=== PATIENT | female | born 1965 | race Hispanic/Latino ===

== ENCOUNTER 2016-07-28 18:12 | Inpatient (IN) | payer OTHER ==
[2016-07-28 18:59] LABS: Basophils % (Auto) 0.7 % (0.0-1.8); Eosinophils % (Auto) 3.7 % (0.0-4.3); Hematocrit 42.9 % (30.3-42.9); Hemoglobin 14.4 gm/dl (10.1-14.3); Mean Corpuscular HGB Conc 34 % (30-34); Mean Corpuscular Hemoglobin 29 pg (28-32); Mean Corpuscular Volume 87 fl (79-97); Platelet Count 191 K/mm3 (140-440); Red Blood Count 4.96 M/mm3 (3.65-5.03); Red Cell Distribution Width 13.5 % (13.2-15.2); White Blood Count 7.4 K/mm3 (4.5-11.0)
[2016-07-28 19:13] LABS: Anion Gap 17 mmol/L; Blood Urea Nitrogen 9 mg/dL (7-17); Calcium 9.4 mg/dL (8.4-10.2); Carbon Dioxide 27 mmol/L (22-30); Chloride 99.9 mmol/L (98-107); Glucose 78 mg/dL (65-100); Potassium 4.1 mmol/L (3.6-5.0); Sodium 140 mmol/L (137-145)
--- NOTE | 2016-07-28 22:18 | Emergency Department Report ---
ED General Adult HPI - General Chief complaint: Chest Pain Stated complaint: CHEST PAIN Time Seen by Provider: 07/28/16 22:16 Source: patient, RN notes reviewed Mode of arrival: Ambulatory Limitations: No Limitations - History of Present Illness Initial comments: This is a 51-year-old female. She is previously unknown to me. Her primary care doctor is Dr. Kumari. She denies a past medical history. She presents to the ER with chest pain. The chest pain is central. It is described as tight in nature. She indicates it radiates to the back. There is positive nausea and shortness of breath. There is no vomiting. There is no diaphoresis. No posterior leg pain. No posterior leg swelling. No recent trips greater than 4 hours. No recent hospital admissions. The patient also endorses intermittent diaphoresis. She has taken aspirin in the past few days. No recent cardiac risk stratification. -: Gradual Location: chest Radiation: back Quality: aching Consistency: intermittent Improves with: rest Worsens with: eating Associated Symptoms: chest pain, nausea/vomiting, shortness of breath - Related Data Allergies Allergy/AdvReac Type Severity Reaction Status Date / Time ANTIBOTIC Allergy Unknown Uncoded 07/28/16 18:39 ED Review of Systems ROS: Stated complaint: CHEST PAIN Other details as noted in HPI Constitutional: diaphoresis. denies: malaise Eyes: denies: vision change Respiratory: shortness of breath Cardiovascular: chest pain Gastrointestinal: nausea Genitourinary: denies: dysuria Musculoskeletal: back pain Skin: denies: lesions Neurological: denies: weakness Psychiatric: denies: anxiety ED Past Medical Hx - Past Medical History Previous Medical History?: No Additional medical history: ANEMIA - Surgical History Additional Surgical History: WRIST SURGERY - Social History Smoking Status: Current Every Day Smoker Substance Use Type: Alcohol ED Physical Exam - General Limitations: No Limitations General appearance: alert, in no apparent distress - Head Head exam: Present: atraumatic, normocephalic - Eye Eye exam: Present: normal appearance, EOMI. Absent: nystagmus - ENT ENT exam: Present: normal exam, normal orophraynx, mucous membranes moist, normal external ear exam - Neck Neck exam: Present: normal inspection, full ROM. Absent: tenderness, meningismus - Respiratory Respiratory exam: Present: normal lung sounds bilaterally. Absent: respiratory distress, wheezes, rales, rhonchi, stridor, chest wall tenderness, accessory muscle use, decreased breath sounds, prolonged expiratory - Cardiovascular Cardiovascular Exam: Present: regular rate, normal rhythm, normal heart sounds. Absent: bradycardia, tachycardia, irregular rhythm, systolic murmur, diastolic murmur, rubs, gallop - GI/Abdominal GI/Abdominal exam: Present: soft, normal bowel sounds. Absent: distended, tenderness, guarding, rebound, rigid, pulsatile mass - Extremities Exam Extremities exam: Present: normal inspection, full ROM, normal capillary refill. Absent: tenderness, pedal edema, joint swelling, calf tenderness - Back Exam Back exam: Present: normal inspection, full ROM. Absent: tenderness, CVA tenderness (R), CVA tenderness (L), muscle spasm, paraspinal tenderness, vertebral tenderness - Neurological Exam Neurological exam: Present: alert, oriented X3, normal gait, other (Extraocular movements intact. Tongue midline. No facial droop. Facial sensation intact to light touch in the V1, V2, V3 distribution bilaterally. 5 and 5 strength in 4 extremities.. Sensation is intact to light touch in 4 extremities.). Absent : motor sensory deficit - Psychiatric Psychiatric exam: Present: normal affect, normal mood - Skin Skin exam: Present: warm, dry, intact, normal color. Absent: rash ED Course Vital Signs 07/28/16 07/28/16 07/28/16 18:27 22:18 22:35 Temperature 98.4 F 98.2 F Pulse Rate 84 64 72 Respiratory 18 11 L 13 Rate Blood Pressure 201/113 Blood Pressure 219/98 205/97 [Left] O2 Sat by Pulse 100 100 97 Oximetry 07/28/16 07/29/16 07/29/16 23:59 00:00 00:16 Temperature 97.9 F Pulse Rate 77 76 Respiratory 18 20 Rate Blood Pressure 205/97 Blood Pressure 205/97 196/95 [Left] O2 Sat by Pulse 97 100 Oximetry - Reevaluation(s) Reevaluation #1: 07/29/16 00:33 Differential diagnosis: GERD, gastritis, acute coronary syndrome, pneumonia, cardiomyopathy, hypertensive urgency Assessment and plan: 51-year-old female with chest pain, elevated blood pressure , abnormal EKG, no pulmonary embolus or DVT risk factors, low risk by well's criteria. X-ray the chest is unremarkable, the patient has normal pulses in 4 extremities , therefore I think aortic disease is very unlikely. I appreciated that the patient's troponins are negative multiple times, and that her pain has been present for a few weeks, however given her age, elevated blood pressure, and clinical history, I think it prudent to bring the patient into the hospital for blood pressure control, observation, and acute coronary syndrome risk stratification. The patient's case has been discussed with the hospital physician, Dr. Le, who accepts the patient to her service. 07/29/16 00:37 ED Medical Decision Making - Lab Data Result diagrams: 07/28/16 18:36 07/28/16 18:36 Vital Signs 07/28/16 07/28/16 07/28/16 18:27 22:18 22:35 Temperature 98.4 F 98.2 F Pulse Rate 84 64 72 Respiratory 18 11 L 13 Rate Blood Pressure 201/113 Blood Pressure 219/98 205/97 [Left] O2 Sat by Pulse 100 100 97 Oximetry 07/28/16 07/29/16 07/29/16 23:59 00:00 00:16 Temperature 97.9 F Pulse Rate 77 76 Respiratory 18 20 Rate Blood Pressure 205/97 Blood Pressure 205/97 196/95 [Left] O2 Sat by Pulse 97 100 Oximetry Labs 07/28/16 07/28/16 07/28/16 18:36 18:36 20:45 WBC 7.4 RBC 4.96 Hgb 14.4 H Hct 42.9 MCV 87 MCH 29 MCHC 34 RDW 13.5 Plt Count 191 Lymph % (Auto) 30.2 [place] % (Auto) 9.5 H Eos % (Auto) 3.7 Baso % (Auto) 0.7 Lymph # 2.2 Fisher # 0.7 Eos # 0.3 Baso # 0.1 Seg Neutrophils % 55.9 Seg Neutrophils # 4.1 PT INR Sodium 140 Potassium 4.1 Chloride 99.9 Carbon Dioxide 27 Anion Gap 17 BUN 9 Creatinine 0.5 L Estimated GFR > 60 BUN/Creatinine Ratio 18.00 Glucose 78 Calcium 9.4 Troponin T < 0.010 < 0.010 07/28/16 22:40 WBC RBC Hgb Hct MCV MCH MCHC RDW Plt Count Lymph % (Auto) [place] % (Auto) Eos % (Auto) Baso % (Auto) Lymph # Fisher # Eos # Baso # Seg Neutrophils % Seg Neutrophils # PT 13.0 INR 0.99 Sodium Potassium Chloride Carbon Dioxide Anion Gap BUN Creatinine Estimated GFR BUN/Creatinine Ratio Glucose Calcium Troponin T - EKG Data When compared to previous EKG there are: previous EKG unavailable 07/29/16 00:38 EKG #1 demonstrates normal sinus, 65 bpm, normal axis, normal intervals, poor R-wave progression, nonspecific T-wave abnormality, not morphologically consistent with STEMI. EKG #2 demonstrates normal sinus, 64 bpm, normal axis, normal intervals, poor R- wave progression, nonspecific T-wave abnormality, not morphologically consistent with stemi - Radiology Data Radiology results: report reviewed, image reviewed interpreted by me: X-ray of the chest is negative for acute disease Critical care attestation.: If time is entered above; I have spent that time in minutes in the direct care of this critically ill patient, excluding procedure time. ED Disposition Clinical Impression: Chest pain, Hypertensive urgency, Abnormal EKG Disposition: OP ADMITTED IP TO THIS HOSP Is pt being admited?: Yes Does the pt Need Aspirin: Yes Condition: Stable
[2016-07-28] MEDS ORDERED: ALUM-MAG HYDROX-SIMETH 200-200-20MG/5ML PO ONE (23:06)
[2016-07-28] MEDS ORDERED: NITROSTAT SL PRN (23:06)
[2016-07-28] MEDS ORDERED: APRESOLINE IV ONE (23:06)
[2016-07-28] MEDS ORDERED: PEPCID IV ONE (23:06)
[2016-07-28 23:28] LABS: INR 0.99 (0.87-1.13)
--- NOTE | 2016-07-28 23:57 | History and Physical Report ---
History of Present Illness Date of examination: 07/28/16 History of present illness: 51-year-old man with no medical problems comes emergency room with complaints of chest pain. Pain is in the epigastric area which she's had over the last 3 weeks, described as tightness, intermittent in nature lasting for less than 1 minute, intensity 4/10, radiating to the right upper back, she cannot identify exacerbating or relieving factors. She admits to nausea, no vomiting, shortness breath, diaphoresis or palpitation. Also complaining of headache. Blood pressure in the emergency room was greater than 200 systolic Patient denies cough, abdominal pain, hematochezia, dysuria, frequency, focal weakness, dysarthria, fever chills, polydipsia polyuria, hot or cold intolerance , easy bruisability, or rash or bleeding from mucosal membrane, rhinorrhea, epistaxis, earache, tinnitus, blurry vision, eye discharge, anxiety, depression. Other review of systems negative PAST SURGICAL HISTORY: None SOCIAL HISTORY: Smoke 4 cigarettes a day, social alcohol use, no drugs FAMILY HISTORY: Hypertension Medications and Allergies Allergies Allergy/AdvReac Type Severity Reaction Status Date / Time ANTIBOTIC Allergy Unknown Uncoded 07/28/16 18:39 Active Meds: Active Medications Nitroglycerin (Nitrostat) 0.4 mg SL .Q5MIN PRN PRN Reason: Chest Pain Exam - Physical Exam Narrative exam: Gen. appearance: Patient lying in bed, no apparent distress HEENT: Normocephalic, atraumatic, pupils equally round and reactive to light, extraocular movement intact, and no sclericterus,. No JVD or thyromegaly or nodule,neck supple, no carotid bruit ,mucous membranes moist, no exudate or erythema Heart: S1, S2, regular rate and rhythm Lungs: Clear to auscultation bilaterally, breathing comfortable Abdomen: Positive bowel sounds, nontender, nondistended, no organomegaly Extremity: No edema, cyanosis, clubbing Skin: No rash, nodules, warm, dry Neuro: Oriented 3, cranial nerves II-12 intact, speech is fluent, motor and sensory intact - Constitutional Vitals: Temp Pulse Resp BP Pulse Ox 98.2 F 72 13 205/97 97 07/28/16 22:35 07/28/16 22:35 07/28/16 22:35 07/28/16 22:35 07/28/16 22:35 Results - Labs CBC & Chem 7: 07/28/16 18:36 07/28/16 18:36 Labs: Abnormal lab results 07/28/16 07/28/16 Range/Units 18:36 18:36 Hgb 14.4 H (10.1-14.3) gm/dl [place] % (Auto) 9.5 H (0.0-7.3) % Creatinine 0.5 L (0.7-1.2) mg/dL - Imaging and Cardiology EKG: image reviewed Chest x-ray: image reviewed Assessment and Plan Hypertensive urgency, malignant Chest pain most likely secondary to #1 Headache was at the secondary to #1 Admit to medicine Obtain CAT scan of the head, start IV hydralazine, Norvasc Check cardiac enzymes, lipid profile and obtain a stress test Start DVT prophylaxis, IV morphine for pain
[2016-07-29] MEDS ORDERED: APRESOLINE IV PRN (00:27)
[2016-07-29] MEDS ORDERED: TYLENOL PO PRN (00:28)
[2016-07-29] MEDS ORDERED: DULCOLAX PR PRN (00:28)
[2016-07-29] MEDS ORDERED: SODIUM CHLORIDE FLUSH SYRINGE 10 ML IV PRN (00:28)
[2016-07-29] MEDS ORDERED: MILK OF MAGNESIA PO PRN (00:28)
[2016-07-29] MEDS ORDERED: ZOFRAN IV PRN (00:28)
[2016-07-29] MEDS ORDERED: NORVASC PO ONE (00:31)
[2016-07-29] MEDS ORDERED: ASPIRIN PO ONE (00:39)
[2016-07-29] MEDS ORDERED: BABY ASPIRIN ONE (00:41)
[2016-07-29] MEDS ORDERED: NORVASC ONE (00:42)
--- NOTE | 2016-07-29 01:17 | Cat Scan Report ---
FINAL REPORT PROCEDURE: CT HEAD/BRAIN WO CON TECHNIQUE: Computerized tomography of the head was performed without contrast material. HISTORY: headache COMPARISON: No prior studies are available for comparison. FINDINGS: Skull and scalp: Normal. Paranasal sinuses: Moderate opacification of the ethmoid, frontal and sphenoid sinuses.. Ventricles and subarachnoid spaces: Normal. Cerebrum: No evidence of an acute hemorrhage or hematoma. No infarction. No midline displacement. No mass effect. There is an area of hypoattenuation in the region of the sella turcica, this may indicate empty sella syndrome. Further evaluation with MRI may be appropriate.. Cerebellum and brainstem: No evidence of hemorrhage, acute infarction or mass. Vasculature: Normal. Comments: None. IMPRESSION: There is no evidence of acute intracranial hemorrhage, hematoma or infarction. Area of hypoattenuation in the region of the sella turcica may represent empty sella syndrome. Further evaluation with MRI may be appropriate. Moderate sinusitis as discussed.
[2016-07-29 02:48] LABS: Cholesterol 168 mg/dL (50-199); HDL Cholesterol 50 mg/dL (40-59); LDL Cholesterol,Direct 94 mg/dL (50-130); Triglycerides 120 mg/dL (2-149)
[2016-07-29] MEDS: MORPHINE IV PRN ×2 (03:30→17:24)
[2016-07-29 05:15] LABS: Creatine Kinase MB 1.8 ng/mL (0.0-4.0)
--- NOTE | 2016-07-29 09:38 | XRay Report ---
ROUTINE CHEST, TWO VIEWS: HISTORY: chest pain. The trachea, heart, mediastinal contour, lung dooley and bony thorax are unremarkable. IMPRESSION: Unremarkable chest x-ray.
[2016-07-29 10:21] LABS: Creatine Kinase MB 1.7 ng/mL (0.0-4.0)
--- NOTE | 2016-07-29 11:52 | Progress Note ---
Assessment and Plan Assessment and plan: 1. Hypertensive urgency Due to noncompliance Received amlodipine 1 in ER and IV hydralazine On no scheduled po antihypertensives This morning SBP in upper 140s Start amlodipine, monitor BP, adjust as needed 2. Chest pain Likely secondary to hypertensive urgency EKG with no acute ischemic changes and troponin negative Scheduled for stress test 3. Headache Likely secondary significantly elevated BP Resolving with control of hypertension 4. DVT prophylaxis History Interval history: headache resolved, BP better controlled Hospitalist Physical - Constitutional Vitals: Temp Pulse Resp BP Pulse Ox 98.7 F 60 16 147/80 60 L 07/29/16 07:30 07/29/16 07:30 07/29/16 07:30 07/29/16 07:30 07/29/16 07:30 General appearance: Present: no acute distress - EENT Eyes: Present: PERRL, EOM intact. Absent: scleral icterus, conjunctival injection - Neck Neck: Present: normal ROM. Absent: enlarged thyroid, masses or JVD - Respiratory Respiratory effort: normal Respiratory: bilateral: CTA, negative: rhonchi, wheezing - Cardiovascular Rhythm: regular Heart Sounds: Present: S1 & S2. Absent: systolic murmur - Extremities Extremities: no ischemia - Abdominal General gastrointestinal: soft, non-tender, non-distended, normal bowel sounds - Integumentary Integumentary: Present: warm, dry. Absent: jaundice, rash - Psychiatric Psychiatric: cooperative - Neurologic Neurologic: CNII-XII intact, no focal deficits Results - Labs CBC & Chem 7: 07/28/16 18:36 07/28/16 18:36 Labs: Laboratory Last Values WBC 7.4 K/mm3 (4.5-11.0) 07/28/16 18:36 RBC 4.96 M/mm3 (3.65-5.03) 07/28/16 18:36 Hgb 14.4 gm/dl (10.1-14.3) H 07/28/16 18:36 Hct 42.9 % (30.3-42.9) 07/28/16 18:36 MCV 87 fl (79-97) 07/28/16 18:36 MCH 29 pg (28-32) 07/28/16 18:36 MCHC 34 % (30-34) 07/28/16 18:36 RDW 13.5 % (13.2-15.2) 07/28/16 18:36 Plt Count 191 K/mm3 (140-440) 07/28/16 18:36 Lymph % (Auto) 30.2 % (13.4-35.0) 07/28/16 18:36 [place] % (Auto) 9.5 % (0.0-7.3) H 07/28/16 18:36 Eos % (Auto) 3.7 % (0.0-4.3) 07/28/16 18:36 Baso % (Auto) 0.7 % (0.0-1.8) 07/28/16 18:36 Lymph # 2.2 K/mm3 (1.2-5.4) 07/28/16 18:36 [place] # 0.7 K/mm3 (0.0-0.8) 07/28/16 18:36 Eos # 0.3 K/mm3 (0.0-0.4) 07/28/16 18:36 Baso # 0.1 K/mm3 (0.0-0.1) 07/28/16 18:36 Seg Neutrophils % 55.9 % (40.0-70.0) 07/28/16 18:36 Seg Neutrophils # 4.1 K/mm3 (1.8-7.7) 07/28/16 18:36 PT 13.0 Sec. (12.2-14.9) 07/28/16 22:40 INR 0.99 (0.87-1.13) 07/28/16 22:40 Sodium 140 mmol/L (137-145) 07/28/16 18:36 Potassium 4.1 mmol/L (3.6-5.0) 07/28/16 18:36 Chloride 99.9 mmol/L (98-107) 07/28/16 18:36 Carbon Dioxide 27 mmol/L (22-30) 07/28/16 18:36 Anion Gap 17 mmol/L 07/28/16 18:36 BUN 9 mg/dL (7-17) 07/28/16 18:36 Creatinine 0.5 mg/dL (0.7-1.2) L 07/28/16 18:36 Estimated GFR > 60 ml/min 07/28/16 18:36 BUN/Creatinine Ratio 18.00 % 07/28/16 18:36 Glucose 78 mg/dL (65-100) 07/28/16 18:36 Calcium 9.4 mg/dL (8.4-10.2) 07/28/16 18:36 Total Creatine Kinase 66 units/L (30-135) 07/29/16 09:28 CK-MB (CK-2) 1.7 ng/mL (0.0-4.0) 07/29/16 09:28 CK-MB (CK-2) Rel Index 2.5 (0-4) 07/29/16 09:28 Troponin T < 0.010 ng/mL (0.00-0.029) 07/29/16 06:51 Triglycerides 120 mg/dL (2-149) 07/29/16 00:28 Cholesterol 168 mg/dL (50-199) 07/29/16 00:28 LDL Cholesterol Direct 94 mg/dL (50-130) 07/29/16 00:28 HDL Cholesterol 50 mg/dL (40-59) 07/29/16 00:28 Cholesterol/HDL Ratio 3.36 % 07/29/16 00:28 - Imaging and Cardiology Chest x-ray: image reviewed CT Scan - head: report reviewed (no acute abnormality)
[2016-07-29] MEDS: NORVASC PO SCH (12:56)
--- NOTE | 2016-07-30 03:01 | Treadmill Report ---
The patient exercised for 6 minutes of a Doron protocol, completing stage 2 and achieving 7 mets. Peak heart rate was 148 beats per minute. Peak blood pressure was 142/104. There was no chest pain. Test was stopped for fatigue. Baseline ECG was sinus rhythm. With exercise, there were no ST changes of ischemia. No significant dysrhythmias were noted. CONCLUSION: 1. Average exercise capacity. 2. No chest pain. 3. No ST changes of ischemia. 4. No significant dysrhythmias. This is a negative exercise ECG test. JOB# [id number] CA/NTS
[2016-07-30 05:06] LABS: Basophils % (Auto) 0.6 % (0.0-1.8); Eosinophils % (Auto) 4.5 % (0.0-4.3); Hematocrit 42.2 % (30.3-42.9); Mean Corpuscular HGB Conc 33 % (30-34); Mean Corpuscular Hemoglobin 29 pg (28-32); Mean Corpuscular Volume 87 fl (79-97); Platelet Count 183 K/mm3 (140-440); Red Blood Count 4.85 M/mm3 (3.65-5.03); Red Cell Distribution Width 13.9 % (13.2-15.2); White Blood Count 6.9 K/mm3 (4.5-11.0)
[2016-07-30 05:25] LABS: Anion Gap 17 mmol/L; Blood Urea Nitrogen 8 mg/dL (7-17); Calcium 8.9 mg/dL (8.4-10.2); Carbon Dioxide 24 mmol/L (22-30); Chloride 101.6 mmol/L (98-107); Glucose 94 mg/dL (65-100); Potassium 4.3 mmol/L (3.6-5.0); Sodium 138 mmol/L (137-145)
--- NOTE | 2016-07-30 08:23 | Admit Criteria Form ---
Admission Criteria Documentation: CHEST PAIN Clinical Indications for Admission to Inpatient Care (Place 'X' for any and all applicable criteria): Admission is indicated for chest pain and ANY ONE of the following(1)(2)(3)(4)(5 ): [ ]I. Angina with acute coronary syndrome (Also use Myocardial Infarction or Angina guideline) [ ]II. Hemodynamic instability [ ]III. Angina needing acute intervention as indicated by ALL of the following( 11)(12): [ ]a) Unstable angina is present as indicated by angina that is ANY ONE of the following: [ ]i) New onset [ ]ii) Nocturnal [ ]iii) Prolonged at rest [ ]iv) Progressive [ ]b) Angina warrants acute intervention as indicated by ANY ONE of the following: [ ]i) Recurrent angina (e.g, not responding as previously to treatment) [ ]ii) Angina at rest or with low-level activities despite initial medical therapy [ ]iii) New or presumably new ST-segment depression on ECG [ ]iv) Signs or symptoms of heart failure (eg, dyspnea, pulmonary edema) [ ]v) New or worsening mitral regurgitation [ ]vi) Hemodynamic instability [ ]vii) Dangerous arrhythmia (eg, sustained ventricular tachycardia) [ ]viii) History of percutaneous coronary intervention within 6 months [ ]ix) History of coronary artery bypass graft surgery [ ]x) AMARILIS risk score of 2 or greater[A] [ ]xi) History of Diabetes(14) [ ]xii) High-risk cardiac ischemia findings on noninvasive testing (e.g, echocardiogram, treadmill testing, nuclear scan) [ ]xiii) Chronic renal insufficiency (ie, estimated GFR less than 60 mL/min/1.732m) [ ]xiv) Left ventricular ejection fraction less than 40% [ ]IV. Evidence of [place] (eg, cardiac biomarkers positive, ST-segment elevation on ECG) also use Myocardial Infarction Criteria Form. [ ]V. Pulmonary edema [ ]. Respiratory distress [ ]VII. Chest pain indicative of serious diagnosis other than coronary artery disease (eg, aortic dissection) [ ]VIII. Contraindications and/or Inappropriate clinical situations for Observational Care in patients with Chest Pain, when ANY ONE of the following is required: [ ]a) Patient with risk factor for pulmonary embolism, acute coronary syndrome and myocardial infarction (18) [ ]b) Patient with Pulmonary embolism require an average LOS of 4.3 days, therefore emergency department observation management is inappropriate 18,23 [ ]c) Painful condition/s in the elderly, have the highest rate of recidivism after emergency department observation management (10.8%) 20,21,22 [ ]d) Elevated cardiac biomarker requires intensive and exhaustive care (19) [X]IX. General contraindications and/or Inappropriate clinical situations for Observational Care in patients with Chest Pain, when ANY ONE of the following is required: [ ]a) Prediction of prolongation of LOS based on ANY ONE of the following may be considered as a contraindication for observational care 2, 3, 4, 5, 6, 7, 8, 9, 10, 11 [ ]i) Age > 65 yrs. [ ]ii) Patient arriving by ambulance [ ]iii) Patient with high acuity [ ]iv) Patient requiring vital sign monitoring [ ]v) Patient on IV medication [X]b) Systolic blood pressures 180mmHg 3,12 [ ]c) Patient with altered mental status including delirium and other alteration of consciousness, (3) [ ]d) Patient whose discharge disposition will be to a senior living home or rehabilitation home should not be managed in Emergency Department Observation Unit. CMS rule requires 3 days hospital stay before such placement. 3,13 [ ]e) Patient with failure to thrive due to broad array of etiologies 3,16,17 [ ]f) Inability to ambulate 3,14 Extended stay beyond goal length of stay may be needed for (1)(28): [ ]a) Specific condition diagnosed after evaluation (eg, pulmonary embolism, aortic dissection) [ ]b) Unstable angina [ ]c) Continued suspicion of acute coronary syndrome with inability to complete needed cardiac evaluation (eg, patient clinically unable to undergo stress testing) [ ]d) Myocardial infarction (Contents from ANGINA and CHEST PAIN clinical indications for admission to inpatient care have been integrated in this form) The original [employer] [facility] content created by [employer] has been revised. The portions of the content which have been revised are identified through the use of italic text or in bold, and [employer] [facility] [employer] has neither reviewed nor approved the modified material. All other unmodified content is copyright [employer] [facility]. Please see references footnoted in the original [employer] [facility] edition 2016 Admission Criteria Met: Yes
--- NOTE | 2016-07-30 09:30 | Discharge Summary ---
Providers - Providers Date of Admission: 07/28/16 23:55 Date of discharge: 07/30/16 Attending physician: ALKA LANDIS 07/29/16 Consult to Cardiac Rehabilitation [CONS] Routine Reason For Exam: Phase I Primary care physician: CALISTA MCDONALD Hospitalization Reason for admission: chest pain Condition: Stable Pertinent studies: CT head Chest x-ray Stress test Hospital course: Patient is a 50 years old -[place] female with no past medical history who presented to the hospital complaining of chest pain. She was found to be in hypertensive urgency with systolic blood pressure in 200s. Received emergent treatment then started on by mouth antihypertensives and regimen has been adjusted until BP controlled. She underwent stress test that was negative for ischemia. Counseled regarding importance of adherence to treatment and follow-up appointments. Discharged in stable condition with PCP follow-up. Discharge diagnoses: 1. Hypertensive urgency 2. Chest pain - likely secondary to hypertensive urgency 3. Headache - likely secondary significantly elevated BP Disposition: DISCHARGED TO HOME OR SELFCARE Time spent for discharge: 35 minutes Core Measure Documentation - Palliative Care Palliative Care/ Comfort Measures: Not Applicable - Core Measures Any of the following diagnoses?: none Exam - Physical Exam Narrative exam: Seen and examined: - Constitutional Vitals: Temp Pulse Resp BP Pulse Ox 99.0 F 65 18 155/78 96 07/29/16 20:00 07/30/16 01:00 07/29/16 20:00 07/29/16 20:00 07/29/16 22:00 General appearance: Present: no acute distress - EENT Eyes: Present: PERRL, EOM intact - Neck Neck: Present: supple, normal ROM. Absent: masses or JVD - Respiratory Respiratory effort: normal Respiratory: bilateral: CTA, negative: rhonchi, wheezing - Cardiovascular Rhythm: regular Heart Sounds: Present: S1 & S2. Absent: systolic murmur - Extremities Extremities: no ischemia - Abdominal General gastrointestinal: Present: soft, non-tender, non-distended, normal bowel sounds - Musculoskeletal Musculoskeletal: strength equal bilaterally - Psychiatric Psychiatric: cooperative - Neurologic Neurologic: CNII-XII intact, no focal deficits Plan Activity: advance as tolerated Diet: low cholesterol, low salt Follow up with: PRIMARY CARE, [Referring] - 3-5 Days Prescriptions: amLODIPine [Norvasc] 10 mg PO QDAY #30 tablet Hydrochlorothiazide [HCTZ] 12.5 mg PO QDAY #30 capsule
[2016-07-30] MEDS ORDERED: HCTZ PO SCH (10:00)
[2016-07-30] MEDS: NORVASC PO SCH (10:30)
[2016-07-30 12:21] VITALS: BP 148/76
== END 2016-07-30 12:00 | disposition home or self-care (01) | DRG 305 ==
LOC: ED 18:12 → 4A 23:55
PROVIDERS: ADMIT Internal Medicine; ATTEND Internal Medicine
DX: I16.0 Hypertensive urgency (principal); R51 Headache; F17.210 Nicotine dependence, cigarettes, uncomplicated; Z82.49 Family history of ischemic heart disease and other diseases of the circulatory system; Z72.89 Other problems related to lifestyle; Z88.1 Allergy status to other antibiotic agents; Z91.19 Patient's noncompliance with other medical treatment and regimen
CPT/HCPCS: 36415; 70450; 71020; 80048; 80061; 82550; 82553; 84484; 85025; 85610; 93005; 93010; 93017; 96374; 96375; J0360; J2270; J2405

== ENCOUNTER 2017-02-07 10:00 | Emergency (ER) | payer OTHER ==
[2017-02-07 11:24] LABS: Basophils % (Auto) 0.9 % (0.0-1.8); Eosinophils % (Auto) 2.5 % (0.0-4.3); Hematocrit 47.2 % (30.3-42.9); Hemoglobin 15.4 gm/dl (10.1-14.3); Mean Corpuscular HGB Conc 33 % (30-34); Mean Corpuscular Hemoglobin 29 pg (28-32); Mean Corpuscular Volume 87 fl (79-97); Platelet Count 196 K/mm3 (140-440); Red Cell Distribution Width 13.8 % (13.2-15.2); White Blood Count 7.5 K/mm3 (4.5-11.0)
--- NOTE | 2017-02-07 11:29 | XRay Report ---
Chest 2 views: Compared to 07/28/16. Findings: Normal cardiomediastinal silhouette. Trachea is midline. No consolidation, pneumothorax or pleural effusion. Impression: No acute cardiopulmonary findings.
[2017-02-07 11:32] LABS: BUN/Creatinine Ratio 18; Blood Urea Nitrogen 9 mg/dL (7-17); Calcium 9.1 mg/dL (8.4-10.2); Carbon Dioxide 28 mmol/L (22-30); Glucose 103 mg/dL (65-100); Sodium 143 mmol/L (137-145)
[2017-02-07 11:41] LABS: Anion Gap 15 mmol/L; Potassium 4.7 mmol/L (3.6-5.0)
[2017-02-07 15:17] VITALS: BP 147/91
[2017-02-07 15:21] LABS: Bacteria,Urine 1+ /HPF (Negative); Bilirubin,Urine NEG (Negative); Blood,Urine LG (Negative); Ketones,Urine NEG (Negative); Leukocyte Esterase,Urine SM (Negative); Mucus,Urine FEW /HPF; Nitrite,Urine NEG (Negative); Protein,Urine <15 mg/dL mg/dL (Negative); Urobilinogen,Urine < 2.0 mg/dL (<2.0)
[2017-02-07] MEDS ORDERED: TYLENOL PO ONE (16:38)
[2017-02-07] MEDS ORDERED: TORADOL IV ONE (16:38)
[2017-02-07] MEDS ORDERED: PROVENTIL IH ONE (16:38)
[2017-02-07] MEDS ORDERED: ATROVENT IH ONE (16:38)
[2017-02-07] MEDS ORDERED: NACL 0.9% 1000 ML 1,000 ML IV ONE (16:39)
--- NOTE | 2017-02-07 16:39 | Emergency Department Report ---
ED General Adult HPI - General Chief complaint: Dyspnea/Respdistress Stated complaint: SHORTNESS OF BREATH Time Seen by Provider: 02/07/17 16:29 Source: patient, RN notes reviewed, old records reviewed Mode of arrival: Ambulatory Limitations: No Limitations - History of Present Illness Initial comments: This is a 51-year-old female. The patient has been previously evaluated by me. Her primary care doctor is Dr. Kumari, and she has a past medical history of hypertension. Patient was admitted to the hospital for chest pain July of this year, and had a negative exercise EKG stress test. Patient presents to the ER today with complaint of headache, chills, sore throat , shortness of breath, cough, wheezing, body aches and arthralgias. Her symptoms are constant since 4:00 in the morning. They don't have exacerbating or relieving factors. There are no DVT or pulmonary embolus risk factors. -: Gradual Location: head, back, left, right, upper extremity, lower extremity Severity scale (0 -10): 10 Quality: burning, aching Consistency: constant Improves with: none Worsens with: none Associated Symptoms: cough, fever/chills, headaches, shortness of breath, weakness. denies: confusion - Related Data Previous Rx's Medication Instructions Recorded Last Taken Type Hydrochlorothiazide [HCTZ] 12.5 mg PO QDAY #30 capsule 07/30/16 Unknown Rx amLODIPine [Norvasc] 10 mg PO QDAY #30 tablet 07/30/16 Unknown Rx Albuterol Sulfate [Proair 90 mcg IH Q4HR PRN #2 aer.pow.ba 02/07/17 Unknown Rx Respiclick] Benzonatate [Tessalon Perles] 100 mg PO Q8HR PRN #30 capsule 02/07/17 Unknown Rx Fluticasone [Flonase] 1 spray NS QDAY #1 bottle 02/07/17 Unknown Rx Ibuprofen [Motrin] 600 mg PO Q8H PRN #30 tablet 02/07/17 Unknown Rx Ipratropium [place] [Atrovent Hfa] 12.9 gm IH Q4HR #2 hfa.aer.ad 02/07/17 Unknown Rx Ondansetron [Zofran Odt] 4 mg PO Q8HR PRN #20 tab.rapdis 02/07/17 Unknown Rx predniSONE [Deltasone] 40 mg PO QDAY #8 tab 02/07/17 Unknown Rx Allergies Allergy/AdvReac Type Severity Reaction Status Date / Time metronidazole [From Flagyl] Allergy Rash Verified 02/07/17 10:51 ED Review of Systems ROS: Stated complaint: SHORTNESS OF BREATH Other details as noted in HPI Constitutional: malaise, weakness Eyes: denies: eye discharge ENT: throat pain, congestion Respiratory: cough, shortness of breath, wheezing Cardiovascular: dyspnea on exertion Gastrointestinal: denies: vomiting Genitourinary: as per HPI Musculoskeletal: arthralgia, myalgia Skin: denies: lesions Neurological: weakness ED Past Medical Hx - Past Medical History Previous Medical History?: Yes Hx Congestive Heart Failure: No Hx Diabetes: No Hx Asthma: No Hx COPD: No Additional medical history: ANEMIA - Surgical History Past Surgical History?: Yes Additional Surgical History: WRIST SURGERY - Social History Smoking Status: Current Every Day Smoker Substance Use Type: Alcohol, Prescribed - Medications Home Medications: Home Medications Medication Instructions Recorded Confirmed Last Taken Type Hydrochlorothiazide [HCTZ] 12.5 mg PO QDAY #30 capsule 07/30/16 Unknown Rx amLODIPine [Norvasc] 10 mg PO QDAY #30 tablet 07/30/16 Unknown Rx Albuterol Sulfate [Proair 90 mcg IH Q4HR PRN #2 aer.pow.ba 02/07/17 Unknown Rx Respiclick] Benzonatate [Tessalon Perles] 100 mg PO Q8HR PRN #30 capsule 02/07/17 Unknown Rx Fluticasone [Flonase] 1 spray NS QDAY #1 bottle 02/07/17 Unknown Rx Ibuprofen [Motrin] 600 mg PO Q8H PRN #30 tablet 02/07/17 Unknown Rx Ipratropium [place] [Atrovent Hfa] 12.9 gm IH Q4HR #2 hfa.aer.ad 02/07/17 Unknown Rx Ondansetron [Zofran Odt] 4 mg PO Q8HR PRN #20 tab.rapdis 02/07/17 Unknown Rx predniSONE [Deltasone] 40 mg PO QDAY #8 tab 02/07/17 Unknown Rx ED Physical Exam - General Limitations: No Limitations General appearance: alert, in no apparent distress - Head Head exam: Present: atraumatic, normocephalic - Eye Eye exam: Present: normal appearance, PERRL, EOMI, other (visual acuity intact to finger counting, color perception, reading at a close distance). Absent: nystagmus - ENT ENT exam: Present: normal exam, normal orophraynx, mucous membranes moist, TM's normal bilaterally, normal external ear exam - Neck Neck exam: Present: normal inspection, full ROM - Respiratory Respiratory exam: Present: wheezes. Absent: respiratory distress - Cardiovascular Cardiovascular Exam: Present: regular rate, normal rhythm, normal heart sounds. Absent: bradycardia, tachycardia, irregular rhythm, systolic murmur, diastolic murmur, rubs, gallop - GI/Abdominal GI/Abdominal exam: Present: soft, normal bowel sounds. Absent: distended, guarding, rebound, rigid, pulsatile mass - Extremities Exam Extremities exam: Present: normal inspection, full ROM, normal capillary refill. Absent: pedal edema, joint swelling, calf tenderness - Back Exam Back exam: Present: normal inspection, full ROM. Absent: tenderness, CVA tenderness (R), CVA tenderness (L), muscle spasm, paraspinal tenderness - Neurological Exam Neurological exam: Present: alert, oriented X3, normal gait, other (Extraocular movements intact. Tongue midline. No facial droop. Facial sensation intact to light touch in the V1, V2, V3 distribution bilaterally. 5 and 5 strength in 4 extremities.. Sensation is intact to light touch in 4 extremities.). Absent : motor sensory deficit - Psychiatric Psychiatric exam: Present: normal affect, normal mood - Skin Skin exam: Present: warm, dry, intact, normal color. Absent: rash ED Course Vital Signs 02/07/17 02/07/17 02/07/17 10:46 15:15 18:16 Temperature 98.6 F 99.5 F Pulse Rate 102 H Respiratory 20 20 18 Rate Blood Pressure 157/87 Blood Pressure 147/91 [Left] O2 Sat by Pulse 100 96 Oximetry 02/07/17 18:39 Temperature Pulse Rate Respiratory 20 Rate Blood Pressure Blood Pressure [Left] O2 Sat by Pulse 100 Oximetry - Reevaluation(s) Reevaluation #1: 02/07/17 18:39 Differential diagnosis: Influenza, bronchitis, influenza-like illness, viral syndrome, pericarditis, myocarditis, bronchitis, pneumonia, pneumonitis Assessment and plan: [age]-year-old female, no pulmonary embolus or DVT risk factors, low risk by well's criteria, with influenza-like illness with body aches, sore throat, headache, myalgias. Patient had a negative exercise stress test earlier on this year. Her influenza screen is negative. Patient's initial EKG demonstrated nonspecific abnormalities, this is most likely secondary to right and left arm electrode reversal, repeat EKG when compared to prior EKG was unremarkable and unchanged. Cardiac enzymes negative 2, therefore pericarditis, myocarditis very unlikely, given clinical history, I don't believe the patient requires repeat acute coronary syndrome risk stratification. The patient was treated aggressively with albuterol, Atrovent, steroids and pain medication, her symptoms much improved, she was able to walk around the ER without desaturation, and her wheezing also resolved. She did have a slight resting tachycardia at the time of discharge, this is most likely secondary to albuterol administration. The patient will be discharged at this time, return precautions are reviewed. Patient has no neck pain or neck stiffness, she is not obtunded, has a normal neurologic examination, therefore do not feel patient requires emergent imaging of the brain Reevaluation #2: 02/07/17 18:45 The patient does report positive sick contacts and work who also have influenza- like symptoms. ED Medical Decision Making - Lab Data Result diagrams: 02/07/17 10:59 02/07/17 10:59 Vital Signs 02/07/17 02/07/17 02/07/17 10:46 15:15 18:16 Temperature 98.6 F 99.5 F Pulse Rate 102 H Respiratory 20 20 18 Rate Blood Pressure 157/87 Blood Pressure 147/91 [Left] O2 Sat by Pulse 100 96 Oximetry Labs 02/07/17 02/07/17 02/07/17 10:59 10:59 14:45 WBC 7.5 RBC 5.40 H Hgb 15.4 H Hct 47.2 H MCV 87 MCH 29 MCHC 33 RDW 13.8 Plt Count 196 Lymph % (Auto) 19.5 [place] % (Auto) 7.6 H Eos % (Auto) 2.5 Baso % (Auto) 0.9 Lymph # 1.5 [place] # 0.6 Eos # 0.2 Baso # 0.1 Seg Neutrophils % 69.5 Seg Neutrophils # 5.2 Sodium 143 Potassium 4.7 Chloride 105.0 Carbon Dioxide 28 Anion Gap 15 BUN 9 Creatinine 0.5 L Estimated GFR > 60 BUN/Creatinine Ratio 18 Glucose 103 H Calcium 9.1 Troponin T < 0.010 Urine Color Yellow Urine Turbidity Clear Urine pH 7.0 Ur Specific [place] 1.015 Urine Protein <15 mg/dl Urine Glucose (UA) Neg Urine Ketones Neg Urine Blood Lg Urine Nitrite Neg Urine Bilirubin Neg Urine Urobilinogen < 2.0 Ur Leukocyte Esterase Sm Urine WBC (Auto) 12.0 H Urine RBC (Auto) 4.0 U Epithel Cells (Auto) 10.0 Urine Bacteria (Auto) 1+ Urine Mucus Few 02/07/17 16:58 WBC RBC Hgb Hct MCV MCH MCHC RDW Plt Count Lymph % (Auto) [place] % (Auto) Eos % (Auto) Baso % (Auto) Lymph # [place] # Eos # Baso # Seg Neutrophils % Seg Neutrophils # Sodium Potassium Chloride Carbon Dioxide Anion Gap BUN Creatinine Estimated GFR BUN/Creatinine Ratio Glucose Calcium Troponin T < 0.010 Urine Color Urine Turbidity Urine pH Ur Specific [place] Urine Protein Urine Glucose (UA) Urine Ketones Urine Blood Urine Nitrite Urine Bilirubin Urine Urobilinogen Ur Leukocyte Esterase Urine WBC (Auto) Urine RBC (Auto) U Epithel Cells (Auto) Urine Bacteria (Auto) Urine Mucus - EKG Data -: EKG Interpreted by [facility] - EKG Data 02/07/17 18:42 EKG #2 demonstrates sinus, 99 bpm, normal axis, abnormal EKG, not morphologically consistent with ST elevation myocardial infarction, or R-wave progression, appears unchanged when compared to prior EKG from 07/29/2016. The initial EKG is also reviewed and interpreted, it did not demonstrate an ST elevation myocardial infarction, there were nonspecific QRS abnormalities in leads 1 and aVL, this is mostly secondary to lead placement. The patient is low risk by AMARILIS score, low risk by heart score. does not endorse any urinary symptoms. - Radiology Data Radiology results: report reviewed, image reviewed X-ray of the chest is negative for acute disease Critical care attestation.: If time is entered above; I have spent that time in minutes in the direct care of this critically ill patient, excluding procedure time. ED Disposition Clinical Impression: Influenza-like illness Disposition: DC-01 TO HOME OR SELFCARE Is pt being admited?: No Does the pt Need Aspirin: No Condition: Stable Instructions: Acute Bronchitis (ED) Additional Instructions: Discontinued tobacco consumption if you or anyone you live with is consuming tobacco. Symptoms most likely coming from influenza-like illness. Use albuterol inhaler and Atrovent inhaler every 4-6 hours for the next 5 days. Use the steroids as directed. Use the Flonase medication as needed for congestion and cough, use the Tessalon Perles medication as needed for cough, and use ibuprofen medication as needed for pain. Use the Zofran medication as needed for nausea. Symptoms will likely take 7-10 days to resolve. Return to the ER right away with few pain, worsened pain, migration of pain, fevers, chills, lethargy, irritability, confusion, projectile vomiting, change in mental status. Wash hands very thoroughly before and after handling food and before and after contacting people physically. Prescriptions: Albuterol Sulfate [Proair Respiclick] 90 mcg IH Q4HR PRN #2 aer.pow.ba PRN Reason: Wheezing Benzonatate [Tessalon Perles] 100 mg PO Q8HR PRN #30 capsule PRN Reason: Cough Fluticasone [Flonase] 1 spray NS QDAY #1 bottle Ibuprofen [Motrin] 600 mg PO Q8H PRN #30 tablet PRN Reason: Pain Ipratropium [place] [Atrovent Hfa] 12.9 gm IH Q4HR #2 hfa.aer.ad Ondansetron [Zofran Odt] 4 mg PO Q8HR PRN #20 tab.rapdis PRN Reason: Nausea predniSONE [Deltasone] 40 mg PO QDAY #8 tab Referrals: PRIMARY CAREMD [Primary Care Provider] - 3-5 Days ZACK BENITO MD [Staff Physician] - 3-5 Days Forms: Work/School Release Form(ED)
== END 2017-02-07 19:31 | disposition home or self-care (01) ==
LOC: ED 10:00
DX: R51 Headache (principal); R06.02 Shortness of breath; R05 Cough; R50.9 Fever, unspecified; R53.1 Weakness; F17.200 Nicotine dependence, unspecified, uncomplicated; Z88.8 Allergy status to other drugs, medicaments and biological substances
CPT/HCPCS: 36415; 71020; 80048; 81001; 84484; 85025; 87400; 93005; 93010; 94640; 96361; 96374; 96375; 99284; J1885; J2930; J7030

== ENCOUNTER 2017-03-19 08:46 | Emergency (ER) | payer OTHER ==
--- NOTE | 2017-03-19 12:19 | Emergency Department Report ---
ED General Adult HPI - General Chief complaint: High BP Stated complaint: HYPERTENSIVE Time Seen by Provider: 03/19/17 11:54 Source: patient Mode of arrival: Ambulatory Limitations: No Limitations - History of Present Illness Initial comments: This is a 52-year-old female nontoxic, well nourished in appearance, no acute signs of distress presents to the ED with c/o of high blood pressure, blurry vision, and left sided numbness and tingling. Patient stated these symptoms are intermittent. Patient stated she takes Norvasc 10mg daily but stated her blood pressure has been jumping from 170 to 150s systolic. Patient currently stated in the ED she does not have any numbness or tingling. Patient denies any chest pain, shortness of breathe, fever, chills, headache, numbness, tingling, stiff neck, abdominal pain. Patient states allergies to Flagyl. PMH includes anemia. MD Complaint: hypertension -: year(s) Radiation: non-radiation Severity scale (0 -10): 0 Consistency: constant Improves with: none Worsens with: none Associated Symptoms: denies other symptoms. denies: confusion, chest pain, cough, diaphoresis, fever/chills, headaches, loss of appetite, malaise, nausea/ vomiting, rash, seizure, shortness of breath, syncope, weakness Treatments Prior to Arrival: none - Related Data Previous Rx's Medication Instructions Recorded Last Taken Type Hydrochlorothiazide [HCTZ] 12.5 mg PO QDAY #30 capsule 07/30/16 Unknown Rx amLODIPine [Norvasc] 10 mg PO QDAY #30 tablet 07/30/16 Unknown Rx Albuterol Sulfate [Proair 90 mcg IH Q4HR PRN #2 aer.pow.ba 02/07/17 Unknown Rx Respiclick] Benzonatate [Tessalon Perles] 100 mg PO Q8HR PRN #30 capsule 02/07/17 Unknown Rx Fluticasone [Flonase] 1 spray NS QDAY #1 bottle 02/07/17 Unknown Rx Ibuprofen [Motrin] 600 mg PO Q8H PRN #30 tablet 02/07/17 Unknown Rx Ipratropium [place] [Atrovent Hfa] 12.9 gm IH Q4HR #2 hfa.aer.ad 02/07/17 Unknown Rx Ondansetron [Zofran Odt] 4 mg PO Q8HR PRN #20 tab.rapdis 02/07/17 Unknown Rx predniSONE [Deltasone] 40 mg PO QDAY #8 tab 02/07/17 Unknown Rx Amoxicillin/K Clav Tab [Augmentin 1 tab PO Q12HR #20 tab 03/19/17 Unknown Rx 875 mg] Allergies Allergy/AdvReac Type Severity Reaction Status Date / Time metronidazole [From Flagyl] Allergy Rash Verified 02/07/17 10:51 ED Review of Systems ROS: Stated complaint: HYPERTENSIVE Other details as noted in HPI Constitutional: denies: chills, fever Eyes: denies: eye pain, eye discharge, vision change ENT: denies: ear pain, throat pain Respiratory: denies: cough, shortness of breath, wheezing Cardiovascular: denies: chest pain, palpitations Endocrine: no symptoms reported Gastrointestinal: denies: abdominal pain, nausea, diarrhea Genitourinary: denies: urgency, dysuria, discharge Musculoskeletal: denies: back pain, joint swelling, arthralgia Skin: denies: rash, lesions Neurological: denies: headache, weakness, paresthesias Psychiatric: denies: anxiety, depression Hematological/Lymphatic: denies: easy bleeding, easy bruising ED Past Medical Hx - Past Medical History Previous Medical History?: Yes Hx Congestive Heart Failure: No Hx Diabetes: No Hx Asthma: No Hx COPD: No Additional medical history: ANEMIA - Surgical History Past Surgical History?: Yes Additional Surgical History: WRIST SURGERY - Social History Smoking Status: Former Smoker Substance Use Type: Alcohol - Medications Home Medications: Home Medications Medication Instructions Recorded Confirmed Last Taken Type Hydrochlorothiazide [HCTZ] 12.5 mg PO QDAY #30 capsule 07/30/16 Unknown Rx amLODIPine [Norvasc] 10 mg PO QDAY #30 tablet 07/30/16 Unknown Rx Albuterol Sulfate [Proair 90 mcg IH Q4HR PRN #2 aer.pow.ba 02/07/17 Unknown Rx Respiclick] Benzonatate [Tessalon Perles] 100 mg PO Q8HR PRN #30 capsule 02/07/17 Unknown Rx Fluticasone [Flonase] 1 spray NS QDAY #1 bottle 02/07/17 Unknown Rx Ibuprofen [Motrin] 600 mg PO Q8H PRN #30 tablet 02/07/17 Unknown Rx Ipratropium [place] [Atrovent Hfa] 12.9 gm IH Q4HR #2 hfa.aer.ad 02/07/17 Unknown Rx Ondansetron [Zofran Odt] 4 mg PO Q8HR PRN #20 tab.rapdis 02/07/17 Unknown Rx predniSONE [Deltasone] 40 mg PO QDAY #8 tab 02/07/17 Unknown Rx Amoxicillin/K Clav Tab [Augmentin 1 tab PO Q12HR #20 tab 03/19/17 Unknown Rx 875 mg] ED Physical Exam - General Limitations: No Limitations General appearance: alert, in no apparent distress - Head Head exam: Present: atraumatic, normocephalic, normal inspection - Eye Eye exam: Present: normal appearance, PERRL, EOMI. Absent: scleral icterus, conjunctival injection, nystagmus, periorbital swelling, periorbital tenderness Pupils: Present: normal accommodation - Expanded Eye Exam Expanded Eyelids: Normal Inspection: Right Pupils: Regular, Round: Bilateral, Reactive: Bilateral Sclera/Conjunctival: Normal Inspection: Bilateral Visual acuity (R) = 20/: 20 Visual acuity (L) = 20/: 20 IOP measured with: Tonopen (12 right/14 left) - ENT ENT exam: Present: normal exam, normal orophraynx, mucous membranes moist, TM's normal bilaterally, normal external ear exam - Neck Neck exam: Present: normal inspection, full ROM. Absent: tenderness, meningismus, lymphadenopathy, thyromegaly - Respiratory Respiratory exam: Present: normal lung sounds bilaterally. Absent: respiratory distress, wheezes, rales, rhonchi, stridor, chest wall tenderness, accessory muscle use, decreased breath sounds, prolonged expiratory - Cardiovascular Cardiovascular Exam: Present: regular rate, normal rhythm, normal heart sounds. Absent: bradycardia, tachycardia, irregular rhythm, systolic murmur, diastolic murmur, rubs, gallop - GI/Abdominal GI/Abdominal exam: Present: soft, normal bowel sounds. Absent: distended, tenderness, guarding, rebound, rigid, diminished bowel sounds - Rectal Rectal exam: Present: deferred - Extremities Exam Extremities exam: Present: normal inspection, full ROM, normal capillary refill. Absent: tenderness, pedal edema, joint swelling, calf tenderness - Back Exam Back exam: Present: normal inspection, full ROM. Absent: tenderness, CVA tenderness (R), CVA tenderness (L), muscle spasm, paraspinal tenderness, vertebral tenderness, rash noted - Neurological Exam Neurological exam: Present: alert, oriented X3, CN II-XII intact, normal gait, reflexes normal - Expanded Neurological Exam Expanded Patient oriented to: Present: person, place, time Cranial nerves: EOM's Intact: Normal, Gag Reflex: Normal, Tongue Deviation: Normal, Nystagmus: Normal, Facial Sensation: Normal, Facial Palsy with Forehead Movement: Normal, Facial Palsy without Forehead Movement: Normal Cerebellar function: Finger to Nose: Normal, Heel to Garcia: Normal, Romberg: Normal Upper motor neuron: Aron Neglect: Normal, Pronator Drift: Normal, Babinski Sign : Normal, Sensory Extinction: Normal Sensory exam: Upper Extremity Light Touch: Normal, Upper Extremity Pin Prick: Normal, Upper Extremity Temperature: Normal, UE 2 Point Discrimination: Normal, Lower Extremity Light Touch: Normal, Lower Extremity Pin Prick: Normal, Lower Extremity Temperature: Normal, LE 2 Point Discrimination: Normal Motor strength exam: RUE: 5, LUE: 5, RLE: 5, LLE: 5 DTR: bicep (R): 2+, bicep (L): 2+, tricep (R): 2+, tricep (L): 2+, knee (R): 2+ , knee (L): 2+, ankle (R): 2+, ankle (L): 2+ Best Eye Response ([place]): (4) open spontaneously Best Motor Response ([place]): (6) obeys commands Best Verbal Response ([place]): (5) oriented Jasmine Total: 15 - Psychiatric Psychiatric exam: Present: normal affect, normal mood - Skin Skin exam: Present: warm, dry, intact, normal color. Absent: rash ED Course Vital Signs 03/19/17 09:43 Temperature 98 F Pulse Rate 63 Respiratory 18 Rate Blood Pressure 152/86 O2 Sat by Pulse 100 Oximetry - Reevaluation(s) Reevaluation #1: 03/19/17 12:22 Patient is speaking in full sentences with no signs of distress noted. ED Medical Decision Making - Lab Data Result diagrams: 03/19/17 12:15 03/19/17 12:15 - Medical Decision Making This is a 52-year-old female that presents with hypertension evaluation, sinusitis and blurry vision. Patient is stable and was examined by me. CBC, BMP , UA, Trop obtaiend within normal limits. EKG obtained with normal sinus rhythm and no ST abnormality. CXR and CT of head/brain obtained and dictated by radiologist within normal limits. Patient is notified of all results with no questions noted. Patient is neurologically stable. Normal vascular intact. Patient is discharged with Augmentin. Patient was instructed to Follow-up with a primary care doctor in 3-5 days or if symptoms worsen and continue return to emergency room as soon as possible. At time time of discharge, the patient does not seem toxic or ill in appearance. No acute signs of distress noted. Patient agrees to discharge treatment plan of care. No further questions noted by the patient. Critical care attestation.: If time is entered above; I have spent that time in minutes in the direct care of this critically ill patient, excluding procedure time. ED Disposition Clinical Impression: Blurry vision Hypertension Qualifiers: Hypertension type: unspecified Qualified Code(s): I10 - Essential (primary) hypertension Sinusitis Qualifiers: Sinusitis location: unspecified location Chronicity: unspecified Qualified Code (s): J32.9 - Chronic sinusitis, unspecified Disposition: DC-01 TO HOME OR SELFCARE Is pt being admited?: No Does the pt Need Aspirin: No Condition: Stable Instructions: Hypertension (ED), Sinusitis (ED), Amoxicillin/Clavulanate Potassium (By mouth) Additional Instructions: Follow-up with a primary care doctor in 3-5 days or if symptoms worsen and continue return to emergency room as soon as possible. Prescriptions: Amoxicillin/K Clav Tab [Augmentin 875 mg] 1 tab PO Q12HR #20 tab Referrals: CALISTA MCDONALD MD [Primary Care Provider] - 3-5 Days ZURI BANGURA MD [Staff Physician] - 3-[address] [facility] [Outside] - 3-5 Days [facility] [Outside] - 3-5 Days Forms: Work/School Release Form(ED)
[2017-03-19 12:28] LABS: Basophils % (Auto) 0.9 % (0.0-1.8); Eosinophils % (Auto) 2.5 % (0.0-4.3); Hematocrit 46.6 % (30.3-42.9); Hemoglobin 15.4 gm/dl (10.1-14.3); Mean Corpuscular HGB Conc 33 % (30-34); Mean Corpuscular Hemoglobin 29 pg (28-32); Mean Corpuscular Volume 87 fl (79-97); Platelet Count 214 K/mm3 (140-440); Red Blood Count 5.37 M/mm3 (3.65-5.03); Red Cell Distribution Width 13.6 % (13.2-15.2); White Blood Count 6.5 K/mm3 (4.5-11.0)
--- NOTE | 2017-03-19 12:33 | XRay Report ---
CHEST 2 VIEWS INDICATION: Chest pain. COMPARISON: 02/07/2017. FINDINGS: PA and lateral chest radiographs demonstrate normal cardiomediastinal silhouette. Clear, slightly hyperexpanded lungs/possible COPD. Intact bones. CONCLUSION: No acute chest process, as described. Thank you for the opportunity to participate in this patient's care.
[2017-03-19 12:47] LABS: Anion Gap 17 mmol/L; BUN/Creatinine Ratio 30; Blood Urea Nitrogen 12 mg/dL (7-17); Calcium 9.3 mg/dL (8.4-10.2); Carbon Dioxide 26 mmol/L (22-30); Chloride 99.4 mmol/L (98-107); Glucose 100 mg/dL (65-100); Potassium 3.8 mmol/L (3.6-5.0); Sodium 139 mmol/L (137-145)
--- NOTE | 2017-03-19 12:53 | Cat Scan Report ---
CT HEAD WITHOUT CONTRAST INDICATION: Blurry vision, hypertension, left-sided numbness. COMPARISON: 07/29/2016. FINDINGS: Noncontrast head CT demonstrates normal ventricles and sulci without acute or recent infarct, hemorrhage, mass effect or midline shift. No abnormal extra-axial fluid collections. Posterior fossa structures and basilar cisterns appear within normal limits. Severe, near complete opacification of left sphenoid sinus with moderate right sphenoid sinus mucosal thickening now noted. Clear remainder imaged paranasal sinuses and mastoid air cells. Partially empty sella. Normal calvarium and scalp. Numerous radiopaque dental material. CONCLUSION: Worse bilateral sphenoid sinusitis without acute intracranial CT abnormality, as described. Thank you for the opportunity to participate in this patient's care.
[2017-03-19 13:20] VITALS: BP 148/72
== END 2017-03-19 13:19 | disposition home or self-care (01) ==
LOC: ED 08:46
DX: I10 Essential (primary) hypertension (principal); H53.8 Other visual disturbances; J32.9 Chronic sinusitis, unspecified; D64.9 Anemia, unspecified; Z87.891 Personal history of nicotine dependence; Z88.1 Allergy status to other antibiotic agents
CPT/HCPCS: 36415; 70450; 71020; 80048; 84484; 85025; 93005; 93010

== ENCOUNTER 2017-07-08 17:14 | Emergency (ER) | payer SELFPAY ==
--- NOTE | 2017-07-09 00:21 | Emergency Department Report ---
ED General Adult HPI - General Chief complaint: High BP Stated complaint: PASTRANA/HIGH BP/FEVER Time Seen by Provider: 07/09/17 00:15 Source: patient Mode of arrival: Ambulatory Limitations: No Limitations - History of Present Illness Initial comments: History of high blood pressure here stating intermittent headaches with some radiation of pain to the left arm no stiff neck no back pain note chest pain no abdominal pain no syncope was rechecked for fever. For evaluation of depression with possible sinus problem with headache. This started today she does occasionally get headaches she was not sudden in onset there was no exertional headache she has no chest pain. She is now more controlled she is here stating that she thinks she might have appendicitis condition and wanted to have her blood pressure checked. She also has intermittent headaches. No acute headache no stiff neck no fever no photophobia no sudden onset of exertional head. She is here with a nonfocal neuro exam for further evaluation ache -: Gradual Location: head Radiation: non-radiation Quality: burning Improves with: none Worsens with: none Associated Symptoms: headaches. denies: confusion, chest pain, cough, diaphoresis, fever/chills, loss of appetite, malaise, nausea/vomiting, rash, seizure, shortness of breath, syncope, weakness - Related Data Previous Rx's Medication Instructions Recorded Last Taken Type Hydrochlorothiazide [HCTZ] 12.5 mg PO QDAY #30 capsule 07/30/16 Unknown Rx amLODIPine [Norvasc] 10 mg PO QDAY #30 tablet 07/30/16 Unknown Rx Albuterol Sulfate [Proair 90 mcg IH Q4HR PRN #2 aer.pow.ba 02/07/17 Unknown Rx Respiclick] Benzonatate [Tessalon Perles] 100 mg PO Q8HR PRN #30 capsule 02/07/17 Unknown Rx Fluticasone [Flonase] 1 spray NS QDAY #1 bottle 02/07/17 Unknown Rx Ibuprofen [Motrin] 600 mg PO Q8H PRN #30 tablet 02/07/17 Unknown Rx Ipratropium [place] [Atrovent Hfa] 12.9 gm IH Q4HR #2 hfa.aer.ad 02/07/17 Unknown Rx Ondansetron [Zofran Odt] 4 mg PO Q8HR PRN #20 tab.rapdis 02/07/17 Unknown Rx predniSONE [Deltasone] 40 mg PO QDAY #8 tab 02/07/17 Unknown Rx Amoxicillin/K Clav Tab [Augmentin 1 tab PO Q12HR #20 tab 03/19/17 Unknown Rx 875 mg] Fluconazole [Diflucan] 150 mg PO DAILY #2 tablet 03/19/17 Unknown Rx Doxycycline [Vibramycin CAP] 100 mg PO Q12HR #14 capsule 07/09/17 Unknown Rx Fluticasone [Flonase] 1 spray NS QDAY PRN #1 bottle 07/09/17 Unknown Rx Allergies Allergy/AdvReac Type Severity Reaction Status Date / Time metronidazole [From Flagyl] Allergy Rash Verified 02/07/17 10:51 ED Review of Systems ROS: Stated complaint: PASTRANA/HIGH BP/FEVER Other details as noted in HPI Comment: All other systems reviewed and negative Constitutional: denies: diaphoresis, fever, malaise Eyes: denies: eye discharge, vision change ENT: denies: dental pain, hearing loss, epistaxis Respiratory: denies: shortness of breath, SOB with exertion, SOB at rest, stridor Cardiovascular: denies: chest pain, palpitations, dyspnea on exertion, orthopnea , edema, syncope, paroxysmal nocturnal dyspnea Gastrointestinal: denies: abdominal pain, nausea, vomiting, diarrhea, constipation, hematemesis, melena, hematochezia Genitourinary: denies: frequency, hematuria, discharge, abnormal menses, dyspareunia Skin: denies: change in color, change in hair/nails, pruritus Neurological: denies: numbness, paresthesias, confusion Psychiatric: denies: auditory hallucinations, visual hallucinations, homicidal thoughts Hematological/Lymphatic: denies: easy bruising ED Past Medical Hx - Past Medical History Hx Hypertension: Yes Hx Congestive Heart Failure: No Hx Diabetes: No Hx Asthma: No Hx COPD: No Additional medical history: ANEMIA - Surgical History Additional Surgical History: WRIST SURGERY - Social History Smoking Status: Former Smoker Substance Use Type: Alcohol - Medications Home Medications: Home Medications Medication Instructions Recorded Confirmed Last Taken Type Hydrochlorothiazide [HCTZ] 12.5 mg PO QDAY #30 capsule 07/30/16 Unknown Rx amLODIPine [Norvasc] 10 mg PO QDAY #30 tablet 07/30/16 Unknown Rx Albuterol Sulfate [Proair 90 mcg IH Q4HR PRN #2 aer.pow.ba 02/07/17 Unknown Rx Respiclick] Benzonatate [Tessalon Perles] 100 mg PO Q8HR PRN #30 capsule 02/07/17 Unknown Rx Fluticasone [Flonase] 1 spray NS QDAY #1 bottle 02/07/17 Unknown Rx Ibuprofen [Motrin] 600 mg PO Q8H PRN #30 tablet 02/07/17 Unknown Rx Ipratropium [place] [Atrovent Hfa] 12.9 gm IH Q4HR #2 hfa.aer.ad 02/07/17 Unknown Rx Ondansetron [Zofran Odt] 4 mg PO Q8HR PRN #20 tab.rapdis 02/07/17 Unknown Rx predniSONE [Deltasone] 40 mg PO QDAY #8 tab 02/07/17 Unknown Rx Amoxicillin/K Clav Tab [Augmentin 1 tab PO Q12HR #20 tab 03/19/17 Unknown Rx 875 mg] Fluconazole [Diflucan] 150 mg PO DAILY #2 tablet 03/19/17 Unknown Rx Doxycycline [Vibramycin CAP] 100 mg PO Q12HR #14 capsule 07/09/17 Unknown Rx Fluticasone [Flonase] 1 spray NS QDAY PRN #1 bottle 07/09/17 Unknown Rx ED Physical Exam - General Limitations: No Limitations General appearance: alert - Head Head exam: Present: atraumatic, normocephalic - Eye Eye exam: Present: PERRL, EOMI - ENT ENT exam: Present: normal exam, normal orophraynx - Neck Neck exam: Present: normal inspection. Absent: tenderness, meningismus - Respiratory Respiratory exam: Present: normal lung sounds bilaterally. Absent: respiratory distress, wheezes, rales, rhonchi, stridor, chest wall tenderness, accessory muscle use, decreased breath sounds, prolonged expiratory - Cardiovascular Cardiovascular Exam: Present: regular rate, normal rhythm, normal heart sounds - GI/Abdominal GI/Abdominal exam: Present: soft. Absent: distended, tenderness, guarding, rebound, rigid, mass, bruit, pulsatile mass - Extremities Exam Extremities exam: Present: normal inspection, normal capillary refill. Absent: tenderness, pedal edema, joint swelling, calf tenderness - Back Exam Back exam: Present: normal inspection. Absent: tenderness, CVA tenderness (R), CVA tenderness (L), muscle spasm, paraspinal tenderness, vertebral tenderness - Neurological Exam Neurological exam: Present: alert, oriented X3, CN II-XII intact. Absent: motor sensory deficit - Skin Skin exam: Present: warm. Absent: cyanosis, diaphoretic, erythema, urticaria, vesicles, petechiae, pallor ED Course Vital Signs 07/08/17 07/08/17 07/09/17 18:06 22:16 01:35 Temperature 99 F Pulse Rate 72 67 Respiratory 18 Rate Blood Pressure 124/76 O2 Sat by Pulse 98 98 98 Oximetry 07/09/17 07/09/17 07/09/17 01:41 01:45 02:00 Temperature Pulse Rate Respiratory Rate Blood Pressure 139/72 128/68 O2 Sat by Pulse 98 96 99 Oximetry 07/09/17 07/09/17 07/09/17 02:16 02:30 02:45 Temperature Pulse Rate Respiratory Rate Blood Pressure 133/68 131/68 124/63 O2 Sat by Pulse 98 98 96 Oximetry 07/09/17 03:04 Temperature 98.7 F Pulse Rate Respiratory Rate Blood Pressure O2 Sat by Pulse Oximetry ED Medical Decision Making - Lab Data Result diagrams: 07/09/17 00:22 07/09/17 00:22 - EKG Data -: EKG Interpreted by Me EKG shows normal: sinus rhythm - EKG Data When compared to previous EKG there are: no significant change Interpretation: nonspecific ST-T wave rissa, other (changed from previous nonspecific ST wave no acute ischemic change) - Radiology Data Radiology results: report reviewed - Medical Decision Making Headache is soft and ED pulses equal throughout EKG is not changed from previous stroke was negative making her laboratory studies are normal patient will have a repeat blood pressure check at her doctor's we will start antibiotics for sinusitis headache doesn't appear to be related to the sinus condition no evidence of other emergent processes nor at this time she is stable for outpatient follow-up no evidence of hypertension or hypertensive emergency at this time Critical care attestation.: If time is entered above; I have spent that time in minutes in the direct care of this critically ill patient, excluding procedure time. ED Disposition Clinical Impression: Sinusitis, Headache Disposition: DC-01 TO HOME OR SELFCARE Is pt being admited?: No Condition: Stable Instructions: Acute Headache (ED), Sinusitis (ED), Chronic Hypertension (ED) Additional Instructions: See the doctor listed earlier Dr. take the medicine as directed return if new alarming symptoms or call 911 Prescriptions: Doxycycline [Vibramycin CAP] 100 mg PO Q12HR #14 capsule Fluticasone [Flonase] 1 spray NS QDAY PRN #1 bottle PRN Reason: Congestion Referrals: KIZZY CRISOSTOMO MD [Primary Care Provider] - 3-5 Days Time of Disposition: 03:18
[2017-07-09] MEDS ORDERED: TYLENOL PO ONE (00:22)
[2017-07-09 00:31] LABS: Basophils # (Auto) 0.1 K/mm3 (0.0-0.1); Basophils % (Auto) 1.3 % (0.0-1.8); Eosinophils # (Auto) 0.2 K/mm3 (0.0-0.4); Eosinophils % (Auto) 3.5 % (0.0-4.3); Hematocrit 45.1 % (30.3-42.9); Lymphocytes % (Auto) 43.5 % (13.4-35.0); Mean Corpuscular HGB Conc 33 % (30-34); Mean Corpuscular Hemoglobin 29 pg (28-32); Mean Corpuscular Volume 87 fl (79-97); Monocytes # (Auto) 0.5 K/mm3 (0.0-0.8); Monocytes % (Auto) 7.2 % (0.0-7.3); Platelet Count 212 K/mm3 (140-440); Red Blood Count 5.19 M/mm3 (3.65-5.03); Red Cell Distribution Width 13.2 % (13.2-15.2)
[2017-07-09 01:00] LABS: Alanine Aminotransferase 12 units/L (7-56); Albumin 4.1 g/dL (3.9-5); BUN/Creatinine Ratio 17; Blood Urea Nitrogen 10 mg/dL (7-17); Calcium 9.4 mg/dL (8.4-10.2); Hemolysis Index 14
--- NOTE | 2017-07-09 01:00 | XRay Report ---
FINAL REPORT EXAM: XR CHEST ROUTINE 2V HISTORY: htn TECHNIQUE: PA and lateral views of the chest were submitted. FINDINGS: The heart size and mediastinum appear normal. The lungs are clear. Pleural fluid is not seen. The skeletal structures are well-maintained. IMPRESSION: No active chest disease.
--- NOTE | 2017-07-09 01:28 | Cat Scan Report ---
FINAL REPORT EXAM: CT HEAD/BRAIN WO CON HISTORY: serrano TECHNIQUE: Routine axial imaging was obtained of the brain without IV contrast. Comparison is made to the study of 03/19/2017. FINDINGS: There is no evidence of acute stroke or hemorrhage. The ventricular system is appropriate in size and is symmetric. The basal cisterns appear normal. The mastoid air cells are well pneumatized. The sinuses reveal mucosal thickening in the sphenoid air cells. The calvarium appears intact. IMPRESSION: No acute intracranial process. Chronic sphenoid sinusitis.
[2017-07-09 01:32] LABS: Bilirubin,Urine NEG (Negative); Blood,Urine LG (Negative); Calcium Oxalate Crystals,Urine 1+; Color,Urine Yellow (Yellow); Mucus,Urine 1+ /HPF; Protein,Urine <15 mg/dL mg/dL (Negative)
[2017-07-09 05:15] VITALS: BP 122/60
== END 2017-07-09 05:15 | disposition home or self-care (01) ==
LOC: ED 17:14
DX: J32.9 Chronic sinusitis, unspecified (principal)
CPT/HCPCS: 36415; 70450; 71046; 80053; 81001; 84484; 85025; 93005; 93010

== ENCOUNTER 2019-05-03 13:46 | Emergency (ER) | payer SELFPAY ==
[2019-05-03 14:16] VITALS: BP 128/77
--- NOTE | 2019-05-03 16:23 | Event Note ---
ED Screening Note ED Screening Note: bilateral ear pain that began three weeks ago states it started on the right side then the left side states that the ear pain is causing headache states she has had a fever states she has taken tylenol +rhinorrhea +sinus pressure sick contacts at work with flu like symptoms has not seen her pcp PMHx HTN allergy: flagyl -rash went through menopause
--- NOTE | 2019-05-03 16:26 | Emergency Department Report ---
ED General Adult HPI - General Chief complaint: Dizziness Stated complaint: HEADACHE/FEVER X3 WEEKS Time Seen by Provider: 05/03/19 16:16 Source: patient Mode of arrival: Ambulatory Limitations: No Limitations - History of Present Illness Initial comments: bilateral ear pain that began three weeks ago states it started on the right side then the left side states that the ear pain is causing headache states she has had a fever states she has taken tylenol +rhinorrhea +sinus pressure sick contacts at work with flu like symptoms has not seen her pcp PMHx HTN allergy: flagyl -rash went through menopause Severity scale (0 -10): 10 - Related Data Previous Rx's Medication Instructions Recorded Last Taken Type amLODIPine 10 mg PO QDAY #30 tablet 07/30/16 Unknown Rx hydroCHLOROthiazide [HCTZ] 12.5 mg PO QDAY #30 capsule 07/30/16 Unknown Rx Albuterol Sulfate [Proair 90 mcg IH Q4HR PRN #2 aer.pow.ba 02/07/17 Unknown Rx Respiclick] Benzonatate [Tessalon Perles] 100 mg PO Q8HR PRN #30 capsule 02/07/17 Unknown Rx Fluticasone [Flonase] 1 spray NS QDAY #1 bottle 02/07/17 Unknown Rx Ibuprofen [Motrin] 600 mg PO Q8H PRN #30 tablet 02/07/17 Unknown Rx Ipratropium [place] [Atrovent Hfa] 12.9 gm IH Q4HR #2 hfa.aer.ad 02/07/17 Unknown Rx Ondansetron [Zofran Odt] 4 mg PO Q8HR PRN #20 tab.rapdis 02/07/17 Unknown Rx predniSONE [Deltasone] 40 mg PO QDAY #8 tab 02/07/17 Unknown Rx Amoxicillin/K Clav Tab [Augmentin 1 tab PO Q12HR #20 tab 03/19/17 Unknown Rx 875 mg] Fluconazole [Diflucan] 150 mg PO DAILY #2 tablet 03/19/17 Unknown Rx DOXYCYCLINE Hyclate [Vibramycin 100 mg PO Q12HR #14 capsule 07/09/17 Unknown Rx CAP] Fluticasone [Flonase] 1 spray NS QDAY PRN #1 bottle 07/09/17 Unknown Rx Amoxicillin/Potassium Clav 1 each PO BID 10 Days #20 tablet 05/03/19 Unknown Rx [Augmentin 875-125 Tablet] Allergies Allergy/AdvReac Type Severity Reaction Status Date / Time metronidazole [From Flagyl] Allergy Rash Verified 02/07/17 10:51 ED Review of Systems ROS: Stated complaint: HEADACHE/FEVER X3 WEEKS Other details as noted in HPI Comment: All other systems reviewed and negative ED Past Medical Hx - Past Medical History Previous Medical History?: Yes Hx Hypertension: Yes Hx Congestive Heart Failure: No Hx Diabetes: No Hx Asthma: No Hx COPD: No Additional medical history: ANEMIA - Surgical History Past Surgical History?: Yes Additional Surgical History: WRIST SURGERY - Social History Smoking Status: Never Smoker Substance Use Type: None - Medications Home Medications: Home Medications Medication Instructions Recorded Confirmed Last Taken Type amLODIPine 10 mg PO QDAY #30 tablet 07/30/16 Unknown Rx hydroCHLOROthiazide [HCTZ] 12.5 mg PO QDAY #30 capsule 07/30/16 Unknown Rx Albuterol Sulfate [Proair 90 mcg IH Q4HR PRN #2 aer.pow.ba 02/07/17 Unknown Rx Respiclick] Benzonatate [Tessalon Perles] 100 mg PO Q8HR PRN #30 capsule 02/07/17 Unknown Rx Fluticasone [Flonase] 1 spray NS QDAY #1 bottle 02/07/17 Unknown Rx Ibuprofen [Motrin] 600 mg PO Q8H PRN #30 tablet 02/07/17 Unknown Rx Ipratropium [place] [Atrovent Hfa] 12.9 gm IH Q4HR #2 hfa.aer.ad 02/07/17 Unknown Rx Ondansetron [Zofran Odt] 4 mg PO Q8HR PRN #20 tab.rapdis 02/07/17 Unknown Rx predniSONE [Deltasone] 40 mg PO QDAY #8 tab 02/07/17 Unknown Rx Amoxicillin/K Clav Tab [Augmentin 1 tab PO Q12HR #20 tab 03/19/17 Unknown Rx 875 mg] Fluconazole [Diflucan] 150 mg PO DAILY #2 tablet 03/19/17 Unknown Rx DOXYCYCLINE Hyclate [Vibramycin 100 mg PO Q12HR #14 capsule 07/09/17 Unknown Rx CAP] Fluticasone [Flonase] 1 spray NS QDAY PRN #1 bottle 07/09/17 Unknown Rx Amoxicillin/Potassium Clav 1 each PO BID 10 Days #20 tablet 05/03/19 Unknown Rx [Augmentin 875-125 Tablet] ED Physical Exam - General Limitations: No Limitations General appearance: alert, in no apparent distress - Head Head exam: Present: atraumatic, normocephalic - Eye Eye exam: Present: normal appearance, PERRL, EOMI - ENT ENT exam: Present: normal orophraynx, mucous membranes moist, TM's normal bilaterally, normal external ear exam, other (erythema of the nasal turbinates with purulent drainage, ttp to the left frontal sinus, mild ttp to the bilateral maxillary sinus) - Respiratory Respiratory exam: Present: normal lung sounds bilaterally. Absent: respiratory distress, wheezes, rales, rhonchi, stridor, chest wall tenderness, accessory muscle use, decreased breath sounds, prolonged expiratory - Cardiovascular Cardiovascular Exam: Present: regular rate, normal rhythm, normal heart sounds. Absent: systolic murmur, diastolic murmur, rubs, gallop - Neurological Exam Neurological exam: Present: alert, oriented X3 - Psychiatric Psychiatric exam: Present: normal affect, normal mood - Skin Skin exam: Present: warm, dry, intact ED Course Vital Signs 05/03/19 14:15 Temperature 98.2 F Pulse Rate 75 Respiratory 12 Rate Blood Pressure 128/77 [Left] O2 Sat by Pulse 100 Oximetry Critical care attestation.: If time is entered above; I have spent that time in minutes in the direct care of this critically ill patient, excluding procedure time. ED Disposition Clinical Impression: Acute sinusitis Qualifiers: Sinusitis location: frontal Recurrence: non-recurrent Qualified Code(s): J01.10 - Acute frontal sinusitis, unspecified Disposition: - TO HOME OR SELFCARE Is pt being admited?: No Does the pt Need Aspirin: No Condition: Stable Instructions: Sinusitis (ED) Additional Instructions: please take medication as prescribed. use flonase nasal spray over the counter. may take zyrtec or claritin over the counter. may take aleve or tylenol as needed for pain. follow up with a primary care doctor. return to the emergency room for any new or worsening symptoms. Prescriptions: Amoxicillin/Potassium Clav [Augmentin 875-125 Tablet] 1 each PO BID 10 Days #20 tablet Referrals: NATALIIA POTETR MD [Staff Physician] - 2-3 Days [facility] [Outside] - 2-3 Days [facility] [Outside] - 2-3 Days Time of Disposition: 16:24 Print Language: KAZAKH
== END 2019-05-03 17:35 | disposition home or self-care (01) ==
LOC: ED 13:46
DX: J01.90 Acute sinusitis, unspecified (principal); I10 Essential (primary) hypertension; Z98.890 Other specified postprocedural states; Z79.899 Other long term (current) drug therapy; Z88.8 Allergy status to other drugs, medicaments and biological substances
CPT/HCPCS: 99282